=== PATIENT | female | born 1980 | race Caucasian/White ===

== ENCOUNTER 2017-03-29 05:16 | Day surgery (SDC) | payer BC ==
[2017-03-22 13:35] VITALS: BMI 28.3
--- NOTE | 2017-03-28 10:24 | HP ---
[facility] - Chief Complaint Chief Complaint: Heavy vaginal bleeding with periods. History of Present Illness: Patient has a long history of heavy menstral periods and wants to try to drecrease flow by having an endometrial ablation. Pt also has fibroids in uterus as demonstrated by pelvic sonogram. 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: Alzheimer's, CVA, Dementia, Migraine, Multiple Sclerosis, Peripheral Neuropathy, Parkinson's, Seizure, Syncope, TIA, Vertigo, Other Cardiovascular: No: AFIB, Aneurysm, Aortic Insufficiency, Aortic Stenosis, CAD, CHF, Deep Vein Thrombosis, HTN, Hyperlipdemia, MD, Mitral Insufficiency, Mitral Stenosis, Murmur, Pulmonary Hypertension, Other Pulmonary: No: Asthma, Bronchitis, Cancer, COPD, O2 Dependent, Pneumonia, Previously Intubated, Pulmonary Embolus, Pulmonary Fibrosis, Sleep Apnea, Other Gastrointestinal: No: Ascites, Cancer, Constipation, Crohn's Disease, Diverticulitis, Diverticulosis, Esophageal Varices, Gastritis, GERD, GI Bleed, Hemorrhoids, Hiatal Hernia, Inflamatory Bowel Disease, Irritable Bowel Disease, Pancreatitis, Peptic Ulcer Disease, Ulcerative Colitis, Other Hepatobiliary: No: Cirrhosis, Cholelithiasis, Cholecystitis, Choledocholithiasis , Hepatitis A, Hepatitis B, Hepatitis C, Other Renal/: No: Renal Failure, Renal Inusuff, BPH, Cancer, Hematuria, Hemodialysis , Neurogenic Bladder, Renal Calculi, UTI, Other Reproductive: No: Ectopic , Endometriosis, Fibroids, PID, Polycystic Ovary Syndrome, Postmenopausal, Other ...LMP: 03/20/17 ...: No ...: 3 ...Para: 3 Heme/Onc: No: Anemia, B12 Deficiency, Bleeding Disorder, Cancer, Current Chemotherapy, Current Radiation Therapy, Hemochromatosis, Hypercoaguable State, Myeloproliferative Synd, Sickle Cell Disease, Sickle Cell Trait, Thrombocytopenia, Other Infectious Disease: No: AIDS, C-Diff, Herpes Zoster, HIV, MRSA, STD's, Tuberculosis, VREF, Other Musculoskeletal: No: Bursitis, Chronic low back pain, Hemiparesis, Hemiplegia, Osteoarthritis, Paraplegia, Other Rheumatology: No: Fibromyalgia, Gout, Lupus, Rheumatoid Arthritis, Sarcoidosis, Vasculitis, Other ENT: No: Allergic Rhinitis, Sinusitis, Other Endocrine: No: Lanier's Disease, Margret's Disease, Diabetes Insipidus, Diabetes Mellitus, Hyperparathyroidism, Hyperthyroidism, Hypothyroidism, Osteopenia, SIADH, Other Dermatology: No: Basal Cell, Cellulitis, Eczema, Melanoma, Psoriasis, Squamous Cell, Other (Past bilateral tubal sterilization and breast reduction surgery.) - Current Medications Current Medications: Home Medications Medication Instructions Recorded NK [No Known Home Medication] 03/22/17 Satellite Physical Exam - Physical Examination General Appearance: Well Nourished, Well Developed, Alert & Oriented x3 ENT: Clear, No Discharge, No masses Lung: Clear to auscultation Heart: Regular rate & rhythm, Normal S1, Normal S2 Breasts: Soft, Non-Tender, No masses bilaterally Abdomen: Soft, No tenderness, No CVA Extremities: No edema, No tenderness/swelling Pelvic Exam: Within normal limits External Genitalia, Within normal limits Vagina, Within normal limits Cervix, Within normal limits Uterus, Within normal limits [facility]: Intact, Alert, Oriented Satellite Impression/Plan - Impression/Plan Impression: Menorrhagia with fibroids in uterus Operative Procedure: Hysteroscopy with D/C and endometrial ablation. Date to be Performed: 03/29/17
[2017-03-29] MEDS ORDERED: PROPOFOL 20 ML ONE ×2 (07:16)
[2017-03-29] MEDS ORDERED: MIDAZOLAM HCL 2 MG/2 ML SINGLE DOSE VIAL ONE ×2 (07:16)
[2017-03-29] MEDS ORDERED: DESFLURANE GAS 240 ML BOTTLE IH ONE (07:32)
[2017-03-29] MEDS ORDERED: LIDOCAINE HCL/PF 2% SDV 5ML VIAL ONE (07:38)
[2017-03-29] MEDS ORDERED: SUCCINYLCHOLINE CHLORIDE 200 MG/10 ML VIAL ONE (07:39)
[2017-03-29] MEDS ORDERED: ePHEDrine SULFATE 50 MG/1 ML AMPULE ONE (07:49)
[2017-03-29] MEDS ORDERED: ONDANSETRON 4 MG/2 ML VIAL IVPUSH PRN (08:38)
[2017-03-29] MEDS ORDERED: PROMETHAZINE HCL 25 MG/1 ML VIAL IVPUSH PRN (08:38)
[2017-03-29] MEDS ORDERED: KETOROLAC TROMETHAMINE 30 MG/1 ML VIAL IVPUSH ONE ×2 (08:38→08:40)
[2017-03-29] MEDS ORDERED: LACTATED RINGERS SOLUTION 1,000 ML IV SCH (08:45)
[2017-03-29] MEDS ORDERED: ACETAMINOPHEN INJECTION 100 ML IVPB ONE (08:53)
[2017-03-29] MEDS ORDERED: ACETAMINOPHEN 1000 MG/100 ML VIAL (NON FORMULARY) IVPB ONE ×2 (08:57→09:00)
[2017-03-29 10:52] VITALS: TEMP 97.9
[2017-03-29 12:32] VITALS: BP 95/57; PULSE 68
--- NOTE | 2017-03-30 12:48 | OP ---
DATE OF OPERATION: DATE OF DICTATION: 03/29/2017 SURGEON: Juana Mcintosh MD PREOPERATIVE DIAGNOSIS: Menorrhagia, fibroid uterus. POSTOPERATIVE DIAGNOSIS: Menorrhagia, fibroid uterus. OPERATIVE PROCEDURE: Hysteroscopy with dilatation and curettage and endometrial ablation using hysteroscopic thermal ablation (HTA). [employer] is the company of the machine. DESCRIPTION OF PROCEDURE: The patient was brought to the operating room, placed in a supine position, given fractional anesthesia by the operational meteorologist, placed in the lithotomy position, prepped and draped in the usual manner for hysteroscopy, dilatation and curettage, and endometrial ablation. The patient was first examined. The uterus was noted to be anteverted. Adnexa negative. The uterus appeared normal in size. The anterior lip of the cervix was grasped with a tenaculum after a speculum was placed into the vagina. The uterus was sounded to 8 cm. The cervix was dilated with Brice dilators. Hysteroscopy was performed. A diagnostic hysteroscopy was first performed. The endometrial cavity appeared normal. There were no signs of any abnormal appearing tissue. No signs of polyps. No signs of fibroids. An endometrial curette was used to sample the endometrial cavity. Therefore, endometrial tissue was obtained. This was followed by the hydrothermal ablation procedure, which took 10 minutes. The patient tolerated the procedure well. The procedure went well. Hemostasis was good. After the completion of the procedure, the tenaculum was removed, the HTA instrument was removed from the uterus, and the patient was cleaned and thereafter transferred to the recovery room in good condition with good hemostasis. JUANA MCINTOSH M.D. [id number]
--- NOTE | 2017-04-01 12:39 | PATH ---
Surgical Pathology Report Patient Name: LUIS MORALES [facility] [place]. Rec. #: [id number] /Age/Gender: 1980 (Age: 37) / F Account: [id number] Location: [facility] SURGICAL Taken: 03/29/2017 Received: 03/29/2017 Reported: 04/01/2017 Physicians: Jeff Mcintosh M.D. Specimen(s) Received ENDOMETRIAL CURETTINGS Clinical History Menorrhagia, fibroid uterus Final Diagnosis ENDOMETRIUM, CURETTING: PROLIFERATIVE ENDOMETRIUM WITH AREAS SUGGESTIVE OF BENIGN ENDOMETRIAL POLYP, AND HYALINIZED NODULES SUGGESTIVE OF PLACENTAL IMPLANTATION SITE NODULE. BENIGN ENDOCERVICAL TISSUE PRESENT. NO ENDOMETRIAL HYPERPLASIA OR CARCINOMA IDENTIFIED. Electronically Signed Ross Kraus M.D. Gross Description Received in formalin labeled "endometrial curettage," is a 1.8 x 0.5 x 0.3 cm aggregate of gale-pink, irregular to polypoid soft tissue fragments. The specimen is submitted in toto in one cassette. 03/29/2017 [facility]03/29/2017
== END 2017-03-29 12:05 | disposition home or self-care (01) ==
LOC: JASU-SURG 05:16
PROVIDERS: ATTEND Obstetrics & Gynecology
PROC: 0U5B8ZZ Destruction of Endometrium, Via Natural or Artificial Opening Endoscopic (ICD-10-PCS; principal; 2017-03-29 07:30)
PROC: 0UDB8ZX Extraction of Endometrium, Via Natural or Artificial Opening Endoscopic, Diagnostic (ICD-10-PCS; 2017-03-29 07:30)
DX: N92.0 Excessive and frequent menstruation with regular cycle (principal); D25.9 Leiomyoma of uterus, unspecified
CPT/HCPCS: 84703; 88305-TC; 94760

== ENCOUNTER 2017-08-02 06:02 | Day surgery (SDC) | payer BC ==
[2017-07-26 13:25] VITALS: BMI 29.9
--- NOTE | 2017-07-31 17:16 | HP ---
[facility] - Chief Complaint Chief Complaint: Pelvic pain History of Present Illness: This patient recently began to c/o pelvic pain at the time she would have her period. The patient recently had an endometrial ablation for menorrhagia. A sonogram of the pelvis reveals a possible hematometra. 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: Alzheimer's, CVA, Dementia, Migraine, Multiple Sclerosis, Peripheral Neuropathy, Parkinson's, Seizure, Syncope, TIA, Vertigo, Other Cardiovascular: No: AFIB, Aneurysm, Aortic Insufficiency, Aortic Stenosis, CAD, CHF, Deep Vein Thrombosis, HTN, Hyperlipdemia, DC, Mitral Insufficiency, Mitral Stenosis, Murmur, Pulmonary Hypertension, Other Pulmonary: No: Asthma, Bronchitis, Cancer, COPD, O2 Dependent, Pneumonia, Previously Intubated, Pulmonary Embolus, Pulmonary Fibrosis, Sleep Apnea, Other Hepatobiliary: No: Cirrhosis, Cholelithiasis, Cholecystitis, Choledocholithiasis , Hepatitis A, Hepatitis B, Hepatitis C, Other Renal/: No: Renal Failure, Renal Inusuff, BPH, Cancer, Hematuria, Hemodialysis , Neurogenic Bladder, Renal Calculi, UTI, Other Reproductive: No: Ectopic , Endometriosis, Fibroids, PID, Polycystic Ovary Syndrome, Postmenopausal, Other ...LMP: 03/20/17 ...: No ...: 3 ...Para: 3 Heme/Onc: No: Anemia, B12 Deficiency, Bleeding Disorder, Cancer, Current Chemotherapy, Current Radiation Therapy, Hemochromatosis, Hypercoaguable State, Myeloproliferative Synd, Sickle Cell Disease, Sickle Cell Trait, Thrombocytopenia, Other Infectious Disease: No: AIDS, C-Diff, Herpes Zoster, HIV, MRSA, STD's, Tuberculosis, VREF, Other Musculoskeletal: No: Bursitis, Chronic low back pain, Hemiparesis, Hemiplegia, Osteoarthritis, Paraplegia, Other Rheumatology: No: Fibromyalgia, Gout, Lupus, Rheumatoid Arthritis, Sarcoidosis, Vasculitis, Other ENT: No: Allergic Rhinitis, Sinusitis, Other Endocrine: No: Berrien's Disease, Margret's Disease, Diabetes Insipidus, Diabetes Mellitus, Hyperparathyroidism, Hyperthyroidism, Hypothyroidism, Osteopenia, SIADH, Other Dermatology: No: Basal Cell, Cellulitis, Eczema, Melanoma, Psoriasis, Squamous Cell, Other (Patient is post tubal ligation and breast reduction and endometrial ablation.) - Current Medications Current Medications: Home Medications Medication Instructions Recorded NK [No Known Home Medication] 03/22/17 Satellite Physical Exam - Physical Examination General Appearance: Well Nourished, Well Developed, Alert & Oriented x3 ENT: Clear, No Discharge, No masses Lung: Clear to auscultation Heart: Regular rate & rhythm, Normal S1, Normal S2 Breasts: Soft, Non-Tender, No masses bilaterally Abdomen: Soft, No tenderness, No CVA Extremities: No edema, No tenderness/swelling Pelvic Exam: Within normal limits External Genitalia, Within normal limits Vagina, Within normal limits Cervix, Within normal limits Uterus, Within normal limits [facility]: Intact, Alert, Oriented Satellite Impression/Plan - Impression/Plan Impression: Hematometra Operative Procedure: Hysteroscopy with D/C Date to be Performed: 08/02/17
[2017-08-02] MEDS ORDERED: oxyCODONE HCL 5 MG TABLET PO PRN (07:41)
[2017-08-02] MEDS ORDERED: ONDANSETRON 4 MG/2 ML VIAL IVPUSH PRN (07:41)
[2017-08-02] MEDS ORDERED: LACTATED RINGERS SOLUTION 1,000 ML IV SCH (07:45)
[2017-08-02 09:09] VITALS: TEMP 98.3
--- NOTE | 2017-08-02 09:21 | OP ---
DATE OF OPERATION: 08/02/2017 DESCRIPTION OF PROCEDURE: This patient was brought to the operating room, placed in the supine position, given anesthesia by the anesthesiologist, placed in the lithotomy position, prepped and draped in the usual manner for dilatation and curettage. The anterior lip of the cervix was grasped with a tenaculum. The uterus was then dilated with Luna dilators. The uterus was sounded to 8 cm. The cervix again was dilated, and hysteroscopy was performed using the hysteroscope. The patient was noted to have blood clots within the uterus. Besides the blood clots, there were adhesions noted. A dilatation and curettage was carried out with a medium-sized curette, removing the adhesions and blood clots from inside the uterus. The diagnosis of hematometra was confirmed. The patient tolerated the procedure well. Hemostasis was good. The estimated blood loss was approximately 5 mL. After the dilatation and curettage was completed and the hysteroscopy was completed, the vagina was irrigated with saline water, and the tenaculum was removed from the vagina, and the patient was transferred to the recovery room after this was completed. The patient did well. Her vital signs were stable. JUANA WAGNER M.D. [id number]
[2017-08-02 10:34] VITALS: BP 110/71; PULSE 68
--- NOTE | 2017-08-05 15:38 | PATH ---
Surgical Pathology Report Patient Name: LUIS MORALES [facility]. Rec. #: [id number] /Age/Gender: 1980 (Age: 37) / F Account: [id number] Location: [facility] SURGICAL Taken: 08/02/2017 Received: 08/02/2017 Reported: 08/05/2017 Physicians: Jeff Mcintosh M.D. Specimen(s) Received ENDOMETRIAL TISSUE Clinical History Hematometra Final Diagnosis ENDOMETRIAL CURETTINGS, DILATATION AND CURETTAGE: ORGANIZED BLOOD CLOTS, LOWER UTERINE SEGMENT AND BENIGN CERVICAL TISSUE. Electronically Signed Sarita Ellsworth M.D. Gross Description Received in formalin labeled "endometrial curettage" is a 1.2 x 1.0 x 0.2 cm aggregate of gale-brown soft tissue fragments. The formalin is filtered and the specimen is entirely submitted in one cassette. 08/02/201708/02/2017
== END 2017-08-02 10:38 | disposition home or self-care (01) ==
LOC: JASU-SURG 06:02
PROVIDERS: ATTEND Obstetrics & Gynecology
PROC: 0UDB8ZX Extraction of Endometrium, Via Natural or Artificial Opening Endoscopic, Diagnostic (ICD-10-PCS; principal; 2017-08-02 07:30)
PROC: 0UN98ZZ Release Uterus, Via Natural or Artificial Opening Endoscopic (ICD-10-PCS; 2017-08-02 07:30)
DX: N85.7 Hematometra (principal); N85.6 Intrauterine synechiae
CPT/HCPCS: 84703; 88305-TC

== ENCOUNTER 2017-10-23 17:25 | Emergency (ER) | payer BC ==
[2017-10-23 17:31] VITALS: BP 127/89; PULSE 55; TEMP 98.2; BMI 29.9
[2017-10-23] MEDS ORDERED: KETOROLAC TROMETHAMINE 60 MG/2 ML VIAL IM ONE (17:45)
[2017-10-23] MEDS ORDERED: ONDANSETRON *ODT* 4 MG TABLET SL ONE (17:46)
--- NOTE | 2017-10-23 17:47 | PDOC ---
History of Present Illness - General History Source: Patient Exam Limitations: No Limitations - History of Present Illness Initial Comments: 10/23/17 17:47 The patient is a 37 year old female with no significant past medical history who presents to the ED complaining of approximately 2-3 days of posterior neck pain. Neck pain is worse with movement and worse at night, interfering with her sleep. She also complains of nausea, dizziness, and epigastric tightness that is worse after eating. No fever or chills. No blurred vision or numbness or tingling. <Vera Nuñez - Last Filed: 10/23/17 18:10> <Justen Bullock - Last Filed: 10/23/17 18:33> - General Chief Complaint: Pain, Acute Stated Complaint: head and neck pain Time Seen by Provider: 10/23/17 17:31 Past History <Vera Nuñez - Last Filed: 10/23/17 18:10> - Past Medical History Anemia: Yes Asthma: No Cancer: No Cardiac Disorders: No CVA: No COPD: No CHF: No DVT: No Dementia: No Diabetes: No GI Disorders: No Disorders: No HTN: No Hypercholesterolemia: No Liver Disease: No Seizures: No Thyroid Disease: No - Surgical History Abdominal Surgery: (TUBAL LIGATION) Appendectomy: Yes Cardiac Surgery: No Cholecystectomy: No Lung Surgery: No Neurologic Surgery: No Orthopedic Surgery: No - Suicide/Smoking/Psychosocial Hx Smoking History: Never smoked Hx Alcohol Use: No Drug/Substance Use Hx: No Substance Use Type: None Hx Substance Use Treatment: No <Justen Bullock - Last Filed: 10/23/17 18:33> - Past Medical History Allergies/Adverse Reactions: Allergies Allergy/AdvReac Type Severity Reaction Status Date / Time No Known Allergies Allergy Verified 10/23/17 17:25 Home Medications: Ambulatory Orders Ibuprofen 600 mg PO QID PRN #20 tablet 10/23/17 Ondansetron [Zofran Odt -] 4 mg SL TID PRN #15 od.tablet 10/23/17 Review of Systems - Review of Systems Able to Perform ROS?: Yes Comments:: 10/23/17 17:49 GENERAL/CONSTITUTIONAL: No fever or chills. No weakness. HEAD, EYES, EARS, NOSE AND THROAT: No change in vision. No ear pain or discharge. No sore throat. CARDIOVASCULAR: No chest pain or shortness of breath. RESPIRATORY: No cough, wheezing, or hemoptysis. GASTROINTESTINAL: +Nausea, epigastric discomfort. No vomiting, diarrhea or constipation. GENITOURINARY: No dysuria, frequency, or change in urination. MUSCULOSKELETAL: +Neck pain. No other joint or muscle swelling or pain. No back pain. SKIN: No rash NEUROLOGIC: +Dizziness. No headache, loss of consciousness, or change in strength/sensation. ENDOCRINE: No increased thirst. No abnormal weight change. HEMATOLOGIC/LYMPHATIC: No anemia, easy bleeding, or history of blood clots. ALLERGIC/IMMUNOLOGIC: No hives or skin allergy. <Vera Nuñez - Last Filed: 10/23/17 18:10> *Physical Exam - Vital Signs Last Vital Signs Temp Pulse Resp BP Pulse Ox 98.2 F 55 L 16 127/89 100 10/23/17 17:25 10/23/17 17:25 10/23/17 17:25 10/23/17 17:25 10/23/17 17:25 - Physical Exam Comments: 10/23/17 17:58 GENERAL: Awake, alert, and fully oriented, in no acute distress. Moderately obese perimenopausal female. NAD. Completely cooperative. HEAD: No signs of trauma EYES: PERRLA at 4 mm. Examination of the fundi shows that there is narrowing vessels and blurring of the optic disc margins, possibly suggestive of early papal edema, EOM full without diplopia. Visual vargas intact to confrontation, sclera anicteric, conjunctiva clear ENT: Auricles normal inspection, hearing grossly normal, nares patent, oropharynx clear without exudates. Moist mucosa NECK: Normal ROM, supple, no lymphadenopathy, JVD, or masses. +Mild spasm of right sternomastoid muscle and mild tenderness over posterior head of the muscle. The neck however is supple with full ROM and no tenderness or deformity of vertebral bodies. LUNGS: Breath sounds equal, clear to auscultation bilaterally. No wheezes, and no crackles HEART: Regular rate and rhythm, normal S1 and S2, no murmurs, rubs or gallops ABDOMEN: Soft, nontender, normoactive bowel sounds. No guarding, no rebound. No masses EXTREMITIES: Normal range of motion, no edema. No clubbing or cyanosis. No cords, erythema, or tenderness NEUROLOGICAL: Cranial nerves II through XII grossly intact. Normal speech, normal gait. CII_XII intact including hearing b/l. Strengh is full and symmetric. No focal sensory or motor deficits. Gait is stable and unimpaired. SKIN: Warm, Dry, normal turgor, no rashes or lesions noted. <Vera Nuñez - Last Filed: 10/23/17 18:10> - Vital Signs Last Vital Signs Temp Pulse Resp BP Pulse Ox 98.2 F 55 L 16 127/89 100 10/23/17 17:25 10/23/17 17:25 10/23/17 17:25 10/23/17 17:25 10/23/17 17:25 <Justen Bullock - Last Filed: 10/23/17 18:33> Medical Decision Making - Medical Decision Making 10/23/17 18:[address] Holm of opthamology, who will see patient as an outpatient. <Vera Nuñez - Last Filed: 10/23/17 18:10> - Medical Decision Making 10/23/17 18:15 Urine test is negative Subtle findings of possible early papilledema may suggest pseudotumor cerebri. The patient is in the proper demographic for this condition. Dr. Holm, boat diesel motor mechanic, contacted by phone. The case was discussed with him. He agrees to see the patient in his office tomorrow morning for repeat ophthalmological exam and if confirmed, further imaging will be undertaken. The patient is also referred to neurology. She is improved after administration of Toradol and Zofran. Nausea is completely resolved. Neck pain is improved and stiffness as less pronounced. Agrees to follow up as directed tomorrow. Informed of trace blood in the urine and recommended follow-up with urology. 10/23/17 18:32 10/23/17 18:33 , In no significant pain or other distress, neurologically intact upon discharge to follow-up tomorrow as directed. <Justen Bullock - Last Filed: 10/23/17 18:33> *DC/Admit/Observation/Transfer - Attestations Scribe Attestion: 10/23/17 18:13 Documentation prepared by Vera Nuñez, acting as medical instrument cable fabricator for Justen Bullock MD. <Vera Nuñez - Last Filed: 10/23/17 18:10> - Discharge Dispostion Admit: No <Justen Bullock - Last Filed: 10/23/17 18:33> Diagnosis at time of Disposition: Viral syndrome - Discharge Dispostion Disposition: HOME Condition at time of disposition: Improved - Prescriptions Prescriptions: Ibuprofen 600 mg PO QID PRN #20 tablet PRN Reason: neck pain and stiffness Ondansetron [Zofran Odt -] 4 mg SL TID PRN #15 od.tablet PRN Reason: Nausea - Referrals Referrals: Jaren Holm MD [Staff Physician] - Call tomorrow (? papilledema) Dipesh Nelson DO [Staff Physician] - 1 week Chavo Whiteside MD., [Staff Physician] - 1 week - Patient Instructions Printed Discharge Instructions: DI for Viral Gastroenteritis -- Adult, DI for Cervical Muscle Strain Additional Instructions: Eye doctor Dr. Holm has been contacted and will see you tomorrow morning 9 AM. His name and office address are noted in your discharge papers. Please call if you are not able to make the appointment, however, I strongly recommend that you see him for recheck because of the findings noted upon examination of the ice today You are also given the name of a neurologist to see if his symptoms persist or worsen. His name is Dr. Nelson Also, a small amount of blood was noted in your urine. This again showed be evaluated by the urology specialist, Dr. Noe, as directed. - Post Discharge Activity Forms/Work/School Notes: Back to Work
[2017-10-23] MEDS ORDERED: KETOROLAC TROMETHAMINE 60 MG/2 ML VIAL ONE (17:51)
[2017-10-23] MEDS ORDERED: ONDANSETRON *ODT* 4 MG TABLET ONE (17:51)
[2017-10-23 17:57] LABS: PH,URINE 5.5 (4.5-8); URINE APPEARANCE Clear; URINE BILIRUBIN Negative (NEGATIVE); URINE BLOOD 2+ (NEGATIVE); URINE COLOR YELLOW; URINE GLUCOSE (UA) Negative (NEGATIVE); URINE KETONE Negative (NEGATIVE); URINE LEUK ESTERASE TRACE (NEGATIVE); URINE NITRITE Negative (NEGATIVE); URINE PROTEIN Negative (NEGATIVE); URINE UROBILINOGEN 0.2 (0.2-1.0)
[2017-10-23 17:59] LABS: HCG,QUALITATIVE URINE NEGATIVE
[2017-10-23 18:41] LABS: EPI CELLS FEW /HPF; URINE BACTERIA FEW /hpf (NEGATIVE)
== END 2017-10-23 18:48 | disposition home or self-care (01) ==
LOC: FER 17:25
PROC: 3E0233Z Introduction of Anti-inflammatory into Muscle, Percutaneous Approach (ICD-10-PCS; principal; 2017-10-23)
DX: B34.9 Viral infection, unspecified (principal)
CPT/HCPCS: 81003; 81015; 84703; 99283-25

== ENCOUNTER 2018-02-05 05:03 | Inpatient (IN) | payer BC ==
[2018-01-31 14:12] VITALS: BMI 31.6
[~2018-02-05 05:03] MED LIST: ceFAZolin SODIUM 1 GM VIAL IVPB ONE
[2018-02-05] MEDS ORDERED: ROPIVACAINE HCL 0.5% 30ML VIAL ONE (07:20)
--- NOTE | 2018-02-05 07:27 | HP ---
Past Medical History - Primary Care Physician PCP:: Rafael Aviles - Admission Chief Complaint: pelvic pain, menometrorrhagia, fibroid uterus, anemia History of Present Illness: 38 yo f with hx of fibroid uterus , pelvic pain and anemia secondary to heavy irregular menses , previous hx of EM ablation,requesting hysterectomy, risks and ulternatives has discussed with patient History Source: Patient Limitations to Obtaining History: No Limitations - Past Medical History ...: 2 ...Para: 2 - Past Surgical History Hx Myomectomy: No Hx Transabdominal Cerclage: No - Smoking History Smoking history: Never smoked Have you smoked in the past 12 months: No - Alcohol/Substance Use Hx Alcohol Use: No - Social History History of Recent Travel: No Home Medications - Allergies Allergies/Adverse Reactions: Allergies Allergy/AdvReac Type Severity Reaction Status Date / Time No Known Allergies Allergy Verified 10/23/17 17:25 - Home Medications Home Medications: Ambulatory Orders Guaifenesin [Mucinex] 600 mg PO PRN PRN 01/31/18 Cetirizine HCl [Zyrtec -] 10 mg PO PRN 02/05/18 Review of Systems - Review of Systems Constitutional: reports: Weakness Eyes: reports: No Symptoms HENT: reports: No Symptoms Neck: reports: No Symptoms Cardiovascular: reports: No Symptoms Respiratory: reports: No Symptoms Gastrointestinal: reports: Bloating Genitourinary: reports: Frequency, Urgency, Vaginal Bleeding Breasts: reports: No Symptoms Reported Musculoskeletal: reports: Back Pain Integumentary: reports: No Symptoms Neurological: reports: No Symptoms Endocrine: reports: No Symptoms Hematology/Lymphatic: reports: No Symptoms Psychiatric: reports: No Symptoms Physical Exam-PAINTER DECORATOR Vital Signs: Vital Signs Temperature 99.4 F 02/05/18 06:39 Pulse Rate 80 02/05/18 06:39 Respiratory Rate 20 02/05/18 06:39 Blood Pressure 97/66 02/05/18 06:39 O2 Sat by Pulse Oximetry (%) 99 02/05/18 06:41 Constitutional: Yes: Well Nourished, No Distress, Calm Eyes: Yes: WNL, Conjunctiva Clear, EOM Intact HENT: Yes: WNL, Atraumatic, Normocephalic Neck: Yes: WNL, Supple, Trachea Midline Cardiovascular: Yes: WNL, Regular Rate and Rhythm Respiratory: Yes: WNL, Regular, CTA Bilaterally Gastrointestinal: Yes: WNL ...Rectal Exam: Yes: WNL Renal/: Yes: WNL Internal Exam Deferred: No Vaginal Exam: Yes: Normal Cervix: Yes: Normal Uterus: Yes: Enlarged, Lumpy (multiple myomas) Adnexa: Not Palpable: Left, Right Breast(s): Yes: WNL Musculoskeletal: Yes: WNL Extremities: Yes: WNL Edema: No Integumentary: Yes: WNL Neurological: Yes: WNL, Alert, Oriented ...Motor Strength: WNL Psychiatric: Yes: WNL, Alert, Oriented Problem List - Problem (1) Menometrorrhagia Code(s): N92.1 - EXCESSIVE AND FREQUENT MENSTRUATION WITH IRREGULAR CYCLE (2) Intramural and subserous leiomyoma of uterus Code(s): D25.1 - INTRAMURAL LEIOMYOMA OF UTERUS; D25.2 - SUBSEROSAL LEIOMYOMA OF UTERUS (3) Adenomyosis Code(s): N80.0 - ENDOMETRIOSIS OF UTERUS Assessment/Plan supracervical abdominal hyterectomy, bilateral salpingectomy, possible oophorectomy, rba discussed with patient
[2018-02-05] MEDS ORDERED: MIDAZOLAM HCL 2 MG/2 ML SINGLE DOSE VIAL ONE ×2 (07:36)
[2018-02-05] MEDS ORDERED: ceFAZolin 2 GRAM PREMIX BAG IVPB ONE (08:00)
[2018-02-05] MEDS ORDERED: fentaNYL CITRATE 250 MCG/5 ML VIAL ONE (08:09)
[2018-02-05] MEDS ORDERED: PROPOFOL 20 ML ONE ×2 (08:10→09:03)
[2018-02-05] MEDS ORDERED: ROCURONIUM BROMIDE 50 MG/5 ML VIAL ONE (08:10)
[2018-02-05] MEDS ORDERED: ceFAZolin SODIUM 1 GM VIAL IVPB ONE (08:14)
[2018-02-05] MEDS ORDERED: NEOSTIGMINE METHYLSULFATE 0.5 MG/ML - 10 ML MDV ONE (09:30)
[2018-02-05] MEDS ORDERED: MEPERIDINE HCL CARPU-JECT 25 MG/1 ML DISP.SYRIN ONE (09:52)
[2018-02-05] MEDS ORDERED: PROMETHAZINE HCL 25 MG/1 ML VIAL IVPB PRN (10:00)
[2018-02-05] MEDS ORDERED: LACTATED RINGERS SOLUTION 1,000 ML IV SCH (10:00)
[2018-02-05] MEDS ORDERED: ONDANSETRON 4 MG/2 ML VIAL IVPUSH PRN ×3 (10:00→10:15)
[2018-02-05] MEDS ORDERED: DEXAMETHASONE SOD PHOSPHATE 4 MG/1 ML VIAL IVPUSH PRN (10:00)
[2018-02-05] MEDS ORDERED: MEPERIDINE HCL CARPU-JECT 25 MG/1 ML DISP.SYRIN IVPUSH ONE (10:02)
[2018-02-05] MEDS ORDERED: IBUPROFEN 800 MG/8 ML IJ IVPB PRN (10:15)
[2018-02-05] MEDS ORDERED: oxyCODONE HCL 5 MG TABLET PO PRN ×2 (10:15→10:18)
[2018-02-05] MEDS: HYDROmorphone *PCA* 10MG/50ML DISP.SYRIN PCA SCH (10:15)
[2018-02-05] MEDS ORDERED: ACETAMINOPHEN 325 MG TABLET (FP) PO PRN (10:19)
--- NOTE | 2018-02-05 11:39 | OP ---
DATE OF OPERATION: 02/05/2018 PREOPERATIVE DIAGNOSIS: Menometrorrhagia, pelvic pain, fibroid, possible adenomyosis. POSTOPERATIVE DIAGNOSIS: Menometrorrhagia, pelvic pain, fibroid, possible adenomyosis. PROCEDURE: Supracervical abdominal hysterectomy and bilateral salpingectomy. SURGEON: Yeni Aviles MD AUTO DISMANTLER: Jeff Mcintosh MD ESTIMATED BLOOD LOSS: 150 mL. DESCRIPTION OF PROCEDURE: The patient was taken to the operating room, had adequate general anesthesia. Abdomen and perineum were prepped and draped. Pfannenstiel abdominal skin incision was made. Abdominal wall was cut layer by layer until peritoneum was exposed inside. Upon entering the abdominal cavity, upper abdomen was checked, was normal. Bowels were packed away. Uterus was prominent, with some tuboovarian adhesions. Bladder was normal. Cul-de-sac was free of adhesions. Then bowels were packed away. Both round ligaments were identified. The right round ligament also was adherent to the tube and ovary posteriorly. These adhesions were lysed and the tube and ovary on the right side were freed. Then both round ligaments were grasped with a LigaSure cautery, cauterized and cut. Bladder flap was developed and pushed down. Then a hole was made in the broad ligament, and then 2 Kochers were placed at the cornual region of the uterus, and with the LigaSure both adnexa were severed from the uterus. Then the pedicle was first tied and then sutured bilaterally. Then the tubes were grasped with the Phoenix clamp and along the mesosalpinx with the LigaSure cautery, cauterized and removed. Then the bladder was further pushed down. Uterine artery was identified bilaterally, clamped with Jennifer clamp, cut, and the clamp replaced with 0 Vicryl suture bilaterally. The paracervical area was clamped with Jennifer clamp, cut, and the clamp replaced with 0 Vicryl suture bilaterally. At this time the specimen was removed from above the cervix, and then cervix was sutured with interrupted suture of the 0 Vicryl, and then the pelvic cavity was irrigated. No active bleeding was seen. Pelvic reperitonealization was done with a 2-0 Vicryl continuous suture, and the cervix was covered with the peritoneum. Then again pelvic cavity irrigated. No active bleeding was seen. All the lap pad, sponge counts, instrument counts were correct. Peritoneum was closed with 0 Vicryl continuous suture. Muscle was brought together with interrupted suture of 0 Vicryl. Fascia was closed with 0 Vicryl continuous suture. Subcutaneous fat with interrupted suture of 0 Vicryl, and the skin was closed with 4-0 Biosyn subcuticular continuous suture. Patient tolerated the procedure well, left the OR in good condition. YENI AVILES M.D. [id number]
[2018-02-05] MEDS: ELECTROLYTE-148 SOLN 1,000 ML IV SCH (12:23)
[2018-02-05] MEDS ORDERED: CEFAZOLIN 1 GM/D5W 1 GM/50 ML BAG IVPB SCH (18:00)
[2018-02-05] MEDS ORDERED: ceFAZolin SODIUM 1 GM VIAL ONE (18:34)
[2018-02-05] MEDS ORDERED: DEXTROSE 5%-WATER - 50 ML IVPB ONE (18:35)
[2018-02-05] MEDS: CEFAZOLIN 1 GM in DEXTROSE 5%-WATER - 50 ML IVPB SCH (18:37)
[2018-02-06] MEDS ORDERED: ceFAZolin SODIUM 1 GM VIAL ONE ×3 (00:47→17:32)
[2018-02-06] MEDS ORDERED: DEXTROSE 5%-WATER - 50 ML IVPB ONE ×3 (00:47→17:32)
[2018-02-06] MEDS: CEFAZOLIN 1 GM in DEXTROSE 5%-WATER - 50 ML IVPB SCH ×3 (01:00→18:37)
[2018-02-06] MEDS ORDERED: VANCOMYCIN 1,000 MG VIAL (RESTRICTED TO ID ONLY) ONE (07:08)
[2018-02-06] MEDS ORDERED: LIDOCAINE 1%/EPI 1:100000 (20 ML MULTI DOSE VIAL) ONE (07:08)
[2018-02-06] MEDS ORDERED: GENTAMICIN SO4 80 MG/2 ML VIAL ONE (07:08)
[2018-02-06] MEDS ORDERED: THROMBIN (BOVINE) 20,000 UNIT VIAL TP ONE (07:09)
[2018-02-06] MEDS ORDERED: BACITRACIN 15 GM TUBE TOPICAL OINTMENT ONE (07:11)
[2018-02-06 08:57] LABS: ANION GAP 7 (8-16); BLOOD UREA NITROGEN 7 mg/dL (7-18); CALCIUM 8.1 mg/dL (8.5-10.1); CHLORIDE 105 mmol/L (98-107); CO2 27 mmol/L (21-32); CREATININE 0.4 mg/dL (0.55-1.02); GLUCOSE,RANDOM 82 mg/dL (74-106); SODIUM 139 mmol/L (136-145)
[2018-02-06 09:03] LABS: HEMATOCRIT 30.6 % (32.4-45.2); HEMOGLOBIN 10.4 GM/dL (10.7-15.3); MCH 32.3 pg (25.7-33.7); MCHC 33.9 g/dl (32.0-36.0); MEAN CELL VOLUME 95.1 fl (80-96); PLATELET COUNT 211 K/MM3 (134-434); RBC 3.22 M/mm3 (3.60-5.2); RDW 12.7 % (11.6-15.6); WHITE BLOOD COUNT 7.3 K/mm3 (4.0-10.0)
[2018-02-06] MEDS: ENOXAPARIN NA (PORCINE) 40 MG/0.4 ML DISP.SYRIN SQ SCH (09:28)
[2018-02-06] MEDS: ELECTROLYTE-148 SOLN 1,000 ML IV SCH (09:28)
--- NOTE | 2018-02-06 13:15 | PN ---
Progress Note (short form) - Note Progress Note: Anesthesia postop note 38 y/o F s/p GA for abdominal hysterectomy, salpingectomy, operating cost clerk and tap blocks for postop pain management. POD#1, vss, aaox3, ambulating, pain well contolled, tolerating po. Will d/c operating cost clerk. No anesthesia complications.
--- NOTE | 2018-02-06 14:02 | PN ---
Progress Note (short form) - Note Progress Note: pod1 doing well, ambulating voids ok Current Medications Generic Name Dose Route Start Last Admin Trade Name Freq PRN Reason Stop Dose Admin Acetaminophen 650 mg 02/05/18 10:19 Tylenol - PO Q6H PRN PAIN LEVEL 4 - 6 Dexamethasone Sodium Phosphate 4 mg 02/05/18 10:00 Decadron Injection - IVPUSH ONCE PRN NAUSEA AND/OR VOMITING Diphenhydramine HCl 12.5 mg 02/05/18 10:00 Benadryl Injection - IVPUSH ONCE PRN FOR ITCHING Enoxaparin Sodium 40 mg 02/06/18 10:00 02/06/18 09:28 Lovenox - SQ 40 mg DAILY DILIA Administration Fentanyl 50 mcg 02/05/18 10:00 Sublimaze Injection - IVPUSH [id number] PRN PAIN-PACU ORDER X 4 DOSES ONLY Parenteral Electrolytes 1,000 mls @ 125 mls/hr 02/05/18 10:15 02/06/18 09:28 Plasma-Lyte 148 - IV Not Given ASDIR DILIA Cefazolin Sodium 1 gm/ 50 mls @ 100 mls/hr 02/05/18 18:30 02/06/18 09:27 Dextrose IVPB 02/06/18 18:29 100 mls/hr Q8H-IV DILIA Administration Ibuprofen 600 mg 02/05/18 10:15 Motrin - PO Q6H PRN FEVER Ibuprofen 800 mg 02/05/18 10:15 Caldolor Injection - IVPB Q6H PRN Fever - If PO not effective. Ondansetron HCl 4 mg 02/05/18 10:15 Zofran Injection IVPUSH Q6H PRN NAUSEA Oxycodone HCl 5 mg 02/05/18 10:15 Roxicodone - PO Q4H PRN PAIN LEVEL 1-5 Oxycodone HCl 10 mg 02/05/18 10:18 Roxicodone - PO Q6H PRN PAIN LEVEL 6-10 Promethazine HCl 12.5 mg 02/05/18 10:00 Phenergan Injection - IVPB Q6H PRN NAUSEA AND/OR VOMITING Last Vital Signs Temp Pulse Resp BP Pulse Ox 99.3 F 76 18 106/68 97 02/06/18 09:00 02/06/18 09:00 02/06/18 09:00 02/06/18 09:00 02/06/18 09:00 Last Vital Signs Temp Pulse Resp BP Pulse Ox 99.3 F 76 18 106/68 97 02/06/18 09:00 02/06/18 09:00 02/06/18 09:00 02/06/18 09:00 02/06/18 09:00 abdomen soft, no distension, no cva incision dry, clean no calf tenderness plan ambulate, advance diet Problem List - Problems (1) Menometrorrhagia Code(s): N92.1 - EXCESSIVE AND FREQUENT MENSTRUATION WITH IRREGULAR CYCLE (2) Intramural and subserous leiomyoma of uterus Code(s): D25.1 - INTRAMURAL LEIOMYOMA OF UTERUS; D25.2 - SUBSEROSAL LEIOMYOMA OF UTERUS (3) Adenomyosis Code(s): N80.0 - ENDOMETRIOSIS OF UTERUS
[2018-02-06] MEDS ORDERED: SIMETHICONE 80 MG TAB.CHEW (FP) PO PRN (14:03)
[2018-02-06] MEDS: IBUPROFEN 600 MG TABLET (FP) PO PRN (16:37)
[2018-02-06] MEDS: HYDROmorphone *PCA* 10MG/50ML DISP.SYRIN PCA SCH (18:19)
[2018-02-06] MEDS: DOCUSATE SODIUM 100 MG CAPSULE (FP) PO SCH (21:28)
[2018-02-06] MEDS ORDERED: ZOLPIDEM TARTRATE 5 MG TABLET PO PRN (22:20)
--- NOTE | 2018-02-07 07:59 | PN ---
Progress Note (short form) - Note Progress Note: pod 2 had low garde tem last night ambulating, passing gas CBC, BMP 02/06/18 07:12 02/06/18 06:35 Last Vital Signs Temp Pulse Resp BP Pulse Ox 99.3 F 69 20 226/77 96 02/07/18 06:30 02/07/18 06:30 02/07/18 06:30 02/07/18 06:30 02/06/18 21:00 abdomen soft, mild, no distension, incision dry,mild incisional tenderness , no calf tenderness no vaginal bleeding pod 2 doing well plan observation till this pm if afebrile can be d/c home Problem List - Problems (1) Menometrorrhagia Code(s): N92.1 - EXCESSIVE AND FREQUENT MENSTRUATION WITH IRREGULAR CYCLE (2) Intramural and subserous leiomyoma of uterus Code(s): D25.1 - INTRAMURAL LEIOMYOMA OF UTERUS; D25.2 - SUBSEROSAL LEIOMYOMA OF UTERUS (3) Adenomyosis Code(s): N80.0 - ENDOMETRIOSIS OF UTERUS
[2018-02-07] MEDS: DOCUSATE SODIUM 100 MG CAPSULE (FP) PO SCH (09:04)
[2018-02-07] MEDS: ENOXAPARIN NA (PORCINE) 40 MG/0.4 ML DISP.SYRIN SQ SCH (09:06)
--- NOTE | 2018-02-07 10:38 | PATH ---
Surgical Pathology Report Patient Name: LUIS MORALES [facility]. Rec. #: [id number] /Age/Gender: 1980 (Age: 38) / F Account: [id number] Location: [facility] MED/SURG Taken: 02/05/2018 Received: 02/05/2018 Reported: 02/07/2018 Physicians: Rafael Aviles M.D. Specimen(s) Received UTERUS WITH BILATERAL FALLOPIAN TUBES Clinical History Menometrorrhagia, fibroid uterus, pelvic pain Final Diagnosis UTERUS, BILATERAL FALLOPIAN TUBES, SALPINGECTOMY AND SUPRACERVICAL HYSTERECTOMY: SUPRACERVICAL HYSTERECTOMY WITH LEIOMYOMATA. ATROPHIC ENDOMETRIUM WITH FOCAL MUCINOUS METAPLASIA. BILATERAL FALLOPIAN TUBES WITH PARATUBAL CYSTS. Electronically Signed Roger Smith M.D. Gross Description Received in formalin, labeled "uterus, bilateral (salpingectomy) fallopian tubes" is a 78 g, 7.5 x 7 x 3 cm supracervical hysterectomy specimen. Also received separately within the container are two fallopian tubes measuring 4 cm in length x 0.5 cm in diameter and 3.5 cm in length x 0.7 cm in diameter, respectively. The serosal aspect the uterus appears smooth and shiny. Upon opening, the myometrium is markedly thickened with a maximal thickness of up to 2 cm and shows multiple round to ovoid gale rubbery nodules ranging from 0.2-2 cm in greatest dimension. No areas of hemorrhage or necrosis are identified. The endometrial cavity is distorted by the nodules and measures approximately 2 x 0.8 cm with mucoid pink endometrium measuring < 1 mm in thickness. The fallopian tubes show a pinpoint lumen which numerous clear paratubal cysts ranging from 0.3-0.8 cm in greatest dimension, present at the external aspect. Electric Mule Operator sections are submitted in seven cassettes as follows: 0-3-panazmjmyxegzl with nodules; 6-one fallopian tube; 7-other fallopian tube. AE/02/05/18
[2018-02-07 11:20] LABS: HEMATOCRIT 31.4 % (32.4-45.2); HEMOGLOBIN 10.8 GM/dL (10.7-15.3); MCH 32.4 pg (25.7-33.7); MCHC 34.3 g/dl (32.0-36.0); MEAN CELL VOLUME 94.4 fl (80-96); MEAN PLT VOLUME 8.8 fl (7.5-11.1); PLATELET COUNT 216 K/MM3 (134-434); RBC 3.32 M/mm3 (3.60-5.2); RDW 12.8 % (11.6-15.6); WHITE BLOOD COUNT 7.3 K/mm3 (4.0-10.0)
[2018-02-07] MEDS: ELECTROLYTE-148 SOLN 1,000 ML IV SCH (15:45)
[2018-02-07 16:58] VITALS: BP 111/69; PULSE 88; TEMP 100.3
[2018-02-07] MEDS: IBUPROFEN 600 MG TABLET (FP) PO PRN (17:19)
[2018-02-07 17:26] LABS: HEMATOCRIT 29.6 % (32.4-45.2); MCHC 33.7 g/dl (32.0-36.0); MEAN CELL VOLUME 94.9 fl (80-96); MEAN PLT VOLUME 9.2 fl (7.5-11.1); PLATELET COUNT 219 K/MM3 (134-434); RBC 3.11 M/mm3 (3.60-5.2); RDW 12.8 % (11.6-15.6); WHITE BLOOD COUNT 6.6 K/mm3 (4.0-10.0)
[2018-02-07 17:49] LABS: ANION GAP 6 (8-16); BLOOD UREA NITROGEN 7 mg/dL (7-18); CALCIUM 8.5 mg/dL (8.5-10.1); CHLORIDE 104 mmol/L (98-107); CO2 30 mmol/L (21-32); CREATININE 0.5 mg/dL (0.55-1.02); GLUCOSE,RANDOM 94 mg/dL (74-106); POTASSIUM 3.9 mmol/L (3.5-5.1); SODIUM 140 mmol/L (136-145)
--- NOTE | 2018-02-09 09:07 | DS ---
Physical Exam-BRIM RAISER Vital Signs: Vital Signs Temperature 100.3 F H 02/07/18 16:57 Pulse Rate 88 02/07/18 16:57 Respiratory Rate 20 02/07/18 16:57 Blood Pressure 111/69 02/07/18 16:57 O2 Sat by Pulse Oximetry (%) 99 02/07/18 09:00 Constitutional: Yes: Well Nourished, No Distress, Calm Eyes: Yes: WNL, Conjunctiva Clear, EOM Intact HENT: Yes: WNL, Atraumatic, Normocephalic Neck: Yes: WNL, Supple, Trachea Midline Cardiovascular: Yes: WNL, Regular Rate and Rhythm Respiratory: Yes: WNL, Regular, CTA Bilaterally Gastrointestinal: Yes: WNL ...Rectal Exam: Yes: WNL Renal/: Yes: WNL Pelvis: Yes: WNL External Genitalia: Yes: Normal Breast(s): Yes: WNL Musculoskeletal: Yes: WNL Extremities: Yes: WNL Edema: No Integumentary: Yes: WNL Neurological: Yes: WNL, Alert, Oriented ...Motor Strength: WNL Psychiatric: Yes: WNL, Alert, Oriented Labs: CBC, BMP 02/07/18 17:00 02/07/18 17:00 Discharge Summary Reason For Visit: IRREGULAR MENSES; HEMATOMETRA Procedures: Principal: supracervical abdominal hysterectomy , bilateral salpingectomy Hospital Course: no complication Condition: Good - Instructions Diet, Activity, Other Instructions: regular diet, if fever, pain, heavy bleeding call , follow up office 2 weeks Referrals: Rafael Aviles MD [Staff Physician] - Disposition: HOME - Home Medications Comprehensive Discharge Medication List: Ambulatory Orders Guaifenesin [Mucinex] 600 mg PO PRN PRN 01/31/18 Cetirizine HCl [Zyrtec -] 10 mg PO PRN 02/05/18 Ibuprofen [Motrin -] 600 mg PO QID #28 tablet 02/06/18
== END 2018-02-07 18:53 | disposition home or self-care (01) | DRG 743 ==
LOC: JSAMEDAYSX 05:03 → EDSTATUS 08:00 → J8W 13:54
PROVIDERS: ADMIT Obstetrics & Gynecology; ATTEND Obstetrics & Gynecology
PROC: 0UT70ZZ Resection of Bilateral Fallopian Tubes, Open Approach (ICD-10-PCS; 2018-02-05)
PROC: 0UT90ZL Resection of Uterus, Supracervical, Open Approach (ICD-10-PCS; principal; 2018-02-05 08:00)
DX: D25.1 Intramural leiomyoma of uterus (principal); N92.1 Excessive and frequent menstruation with irregular cycle; N80.0 Endometriosis of uterus; R10.2 Pelvic and perineal pain; D64.9 Anemia, unspecified; D25.2 Subserosal leiomyoma of uterus
CPT/HCPCS: 36415; 80048; 84703; 85027; 88309-TC; 94760

== ENCOUNTER 2021-04-17 04:36 | Day surgery (SDC) | payer BC ==
[2021-04-14 08:24] VITALS: BMI 35.6
[2021-04-17 15:51] VITALS: BP 109/70; PULSE 77; TEMP 97.6
== END 2021-04-17 16:15 | disposition home or self-care (01) ==
LOC: JASU-SURG 04:36
PROVIDERS: ATTEND Urology
PROC: 0TF4XZZ Fragmentation in Left Kidney Pelvis, External Approach (ICD-10-PCS; principal; 2021-04-17 13:30)
DX: N20.0 Calculus of kidney (principal)

== ENCOUNTER 2022-12-11 15:50 | Emergency (ER) | payer BC ==
[2022-12-11 16:25] VITALS: BP 115/71; PULSE 79; RESP 18; TEMP 98.2; BMI 37.3
[2022-12-11] MEDS ORDERED: SODIUM CHLORIDE 0.9% 500 ML INFUS.BAG IV ONE (17:26)
[2022-12-11] MEDS ORDERED: ACETAMINOPHEN 1000 MG/100 ML BAG IVPB ONE (17:26)
[2022-12-11] MEDS ORDERED: METOCLOPRAMIDE HCL INJECTION 10 MG/2 ML VIAL IVPB ONE (17:26)
[2022-12-11] MEDS ORDERED: ACETAMINOPHEN INJECTION 100 ML IVPB ONE (17:40)
[2022-12-11] MEDS ORDERED: METOCLOPRAMIDE HCL INJECTION 10 MG/2 ML VIAL ONE (17:40)
[2022-12-11 17:54] LABS: BASO % 0.3 % (0-2.0); EOS % 1.4 % (0-4.5); HEMATOCRIT 36.5 % (32.4-45.2); HEMOGLOBIN 12.5 GM/dL (10.7-15.3); LYMPH % 28.9 % (8-40); MCH 31.4 pg (25.7-33.7); MCHC 34.3 g/dl (32.0-36.0); MEAN CELL VOLUME 91.7 fl (80-96); MEAN PLT VOLUME 8.5 fl (7.5-11.1); MONO % 6.8 % (3.8-10.2); NEUT % 62.6 % (42.8-82.8); PLATELET COUNT 285 10^3/uL (134-434); RBC 3.98 M/mm3 (3.60-5.2); RDW 12.6 % (11.6-15.6); WHITE BLOOD COUNT 6.8 K/mm3 (4.0-10.0)
[2022-12-11 18:07] LABS: CALCIUM 9.1 mg/dL (8.5-10.1)
[2022-12-11 18:08] LABS: ALBUMIN 3.4 g/dl (3.4-5.0); BLOOD UREA NITROGEN 9.9 mg/dL (7-18)
[2022-12-11 18:10] LABS: CREATININE 0.6 mg/dL (0.55-1.3)
[2022-12-11 18:12] LABS: BILIRUBIN,TOTAL 0.2 mg/dL (0.2-1)
[2022-12-11 18:13] LABS: TOT PROT 7.3 g/dl (6.4-8.2)
== END 2022-12-11 19:21 | disposition home or self-care (01) ==
LOC: JERFT 15:50
PROC: 3E033NZ Introduction of Analgesics, Hypnotics, Sedatives into Peripheral Vein, Percutaneous Approach (ICD-10-PCS; principal; 2022-12-11)
PROC: 3E033GC Introduction of Other Therapeutic Substance into Peripheral Vein, Percutaneous Approach (ICD-10-PCS; 2022-12-11)
DX: G44.209 Tension-type headache, unspecified, not intractable (principal); R11.0 Nausea
CPT/HCPCS: 36415; 80053; 83735; 84703; 85025; 99284-25